=== PATIENT | female | born 2000 | race Caucasian/White ===

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

== ENCOUNTER 2020-09-11 22:33 | Emergency (ER) | payer SELFPAY ==
[~2020-09-11] VITALS: Ht 160 cm; Wt 65.8 kg
[2020-09-11 22:50] VITALS: BP 120/56
--- NOTE | 2020-09-11 22:51 | NUR ---
PT W/C ASSISTED TO ER 7
--- NOTE | 2020-09-11 22:51 | NUR ---
GREGG Durán ASSIST TO BED 07.
--- NOTE | 2020-09-11 23:00 | NUR ---
19/F PATIENT C/O RIGHT KNEE PAIN 10/10 THROBBING, CRUSHING, ACHING. PATIENT STOOD UP AND FELL DOWN DUE TO PAIN IN THE RIGHT KNEE AT AROUND 2200. SWELLING AND DISLOCATION NOTED UPON ASSESSMENT. PMH DENIES ALLERGIES: PENICILLINS
--- NOTE | 2020-09-11 23:05 | NUR ---
X-Ray at bedside.
--- NOTE | 2020-09-11 23:07 | NUR ---
Dr. Suárez examining patient.
[2020-09-11] MEDS ORDERED: KETAMINE 500 MG/5 ML VIAL IM ONE (23:20)
[2020-09-11] MEDS ORDERED: ONDANSETRON 4 MG/2 ML VIAL IVP ONE (23:25)
[2020-09-11] MEDS ORDERED: KETAMINE 500 MG/5 ML VIAL IVP ONE (23:25)
[2020-09-11] MEDS ORDERED: HYDROcodone/APAP 10/325 MG 1 TAB TAB ONE (23:53)
--- NOTE | 2020-09-11 23:53 | NUR ---
PT UNABLE TO PRODUCE URINE AT THIS TIME. PT IN SO MUCH PAIN. PT ALSO ON HER PERIOD RIGHT NOW. Addendum: 09/12/20 at 0145 by MERRILL MD SHULTZ
[2020-09-11] MEDS ORDERED: HYDROcodone/APAP 10/325 MG 1 TAB TAB PO ONE (23:55)
[2020-09-12] MEDS ORDERED: KETAMINE 10 MG/ML UD SYR **ER IVP ONE (00:15)
--- NOTE | 2020-09-12 00:15 | NUR ---
Moderate sedation initiated. Dr. Suárez, Ron RN, myself, Sean RUIZ, Brock RN at bedside per protocol. pt medicated with total of 60mg ketamine for moderate sedation. Dr. Suárez performed procedure on right knee and ended at 0019. pt continuously being monitored until back to baseline bella.
--- NOTE | 2020-09-12 00:18 | NUR ---
DR. MILLIGAN AND RT AT BEDSIDE FOR PROCEDURE
--- NOTE | 2020-09-12 00:35 | NUR ---
RADIOLOGY AT BEDSIDE
--- NOTE | 2020-09-12 00:38 | NUR ---
PT WAKING UP. RESPONDING TO NAME AND FOLLOWING INSTRUCTIONS. VSS.WILL CONTINUE TO MONITOR.
--- NOTE | 2020-09-12 00:38 | NUR ---
CALLED TO BEDSIDE FOR CONS. SEDATION APPROX [id number] - PT SEDATED FOR BEDSIDE PROCEDURE APPROX [id number] - PT WAKING UP AND TOLERATED CONS. SEDATION WILL CONTINUE TO MONITOR
[2020-09-12 00:47] VITALS: BP 107/52
[2020-09-12] MEDS ORDERED: IBUP-2218 PO (01:16)
--- NOTE | 2020-09-12 02:28 | NUR ---
d/c with VSS. d/c education given. opportunity to ask questions given and answered. rx of ibuprofen given.
== END 2020-09-12 02:28 | disposition home or self-care (01) ==
LOC: MED 22:33
DX: S83.004A Unspecified dislocation of right patella, initial encounter (principal); W18.40XA Slipping, tripping and stumbling without falling, unspecified, initial encounter; Y93.89 Activity, other specified; Y92.89 Other specified places as the place of occurrence of the external cause; Y99.8 Other external cause status; Z88.0 Allergy status to penicillin
CPT/HCPCS: 27652; 73562; 96374; 99152; 99285; J2405